=== PATIENT | female | born 1945 | race Two or more races ===

== ENCOUNTER → 2017-08-22 | Emergency (ER) | payer OTHER ==
[~2017-08-22] VITALS: Ht 152.4 cm; Wt 76.2 kg
[~2017-08-22] MED LIST: ASPI81TA31 PO; ASPIRIN 325 MG TABLET ONE; ASPIRIN 325 MG TABLET PO ONE; ATOR20TA PO; FERR160T11 PO; GABA-534 PO; HYDR12.5 PO; IV D5 1/2 NS 1000 ML 1,000 ML IV ONE; LURA20TA PO; METF500T6 PO; OMEP40CA37 PO; PIOG15TA8 PO; TRAM50TA2 PO
--- NOTE | 2017-08-22 13:55 | NUR ---
PT IS IN ROOM #1A. DR DAVIS EVALUATED THE PT.
[2017-08-22 14:04] LABS: BASOPHILS % (AUTO) 0.6 % (0.0-2.0); EOSINOPHILS # (AUTO) 0.1 K/uL (0.0-0.7); HEMATOCRIT 31.6 % (31.2-41.9); HEMOGLOBIN 10.8 g/dL (10.9-14.3); LYMPHOCYTES # (AUTO) 2.1 K/uL (20.0-40.0); LYMPHOCYTES % (AUTO) 33.8 % (20.5-51.5); MEAN CORPUSCULAR HEMOGLOBIN 30.2 uug (24.7-32.8); MEAN CORPUSCULAR HGB CONC 34 g/dL (32.3-35.6); MEAN CORPUSCULAR VOLUME 88.3 fL (75.5-95.3); MONOCYTES # (AUTO) 0.4 K/uL (2.0-10.0); MONOCYTES % (AUTO) 6.8 % (0.0-11.0); NEUTROPHILS # (AUTO) 3.6 K/uL (1.8-8.9); NEUTROPHILS % (AUTO) 57.8 % (38.5-71.5); PLATELET COUNT (AUTO) 217 K/uL (179-408); RED BLOOD CELL COUNT(AUTO) 3.58 MIL/uL (3.63-4.92); WHITE BLOOD COUNT (AUTO) 6.3 K/uL (3.8-11.8)
[2017-08-22 14:10] LABS: CARBON DIOXIDE 23 mmol/L (21-32); CHLORIDE 100 mmol/L (98-107); CREATININE 1.5 mg/dL (0.6-1.3); GLUCOSE 93 mg/dL (74-106); POTASSIUM 4.8 mmol/L (3.5-5.1); UREA NITROGEN, BLOOD 25 mg/dL (7-18)
[2017-08-22 14:16] LABS: ALANINE AMINOTRANSFERASE 13 U/L (14-59); ALKALINE PHOSPHATASE 64 U/L (50-136); ASPARTATE AMINOTRANSFERASE 9 U/L (15-37); BILIRUBIN,DIRECT 0.1 mg/dL (0.0-0.2); BILIRUBIN,TOTAL 0.3 mg/dL (0.2-1.0); TOTAL PROTEIN, SERUM 7.3 g/dL (6.4-8.2)
--- NOTE | 2017-08-22 14:43 | NUR ---
[facility] TRACK MOVING MACHINE OPERATOR JIMMY CALLED [facility] PT's TRANSFER INFORMATION.
--- NOTE | 2017-08-22 16:59 | NUR ---
DR DAVIS TALKED TO DR ESCOBAR FROM [facility]. PT IS GOING TO BE TRANSFERED TO [facility] VIA [facility]. DR ESCOBAR IS ADMITING MD FOR THE PT.
--- NOTE | 2017-08-22 18:33 | NUR ---
YODIT FROM [facility] CALLED WITH TRANSFER INFORMATION. PT IS GOING TO ICU ROOM #[id number]. DR ESCOBAR IS ADMITING MD. [facility] IS 1HOUR 30 MINUTES. REPORT WAS GIVEN TO DELIVERY TABLE FEEDER ANNA FROM [facility].
--- NOTE | 2017-08-22 18:56 | NUR ---
REPORT GIVEN TO INGOT PASSER RN.
--- NOTE | 2017-08-22 19:35 | NUR ---
PT ASSESSED AND WORK UP REVIEWED UPON COTTAGE PARENT. PT'S DAUGHTER AT BEDSIDE WHO ASSISTED WITH FARSI INTERPRETATION. ACCORDING TO DAUGHTER, PT'S MENTATION IS NORMAL. PT IS CALM AND COOPERATIVE. PT IS ABLE TO MAKE NEEDS KNOWN. PT'S BREATH SOUNDS ARE CLEAR BILATERALLY. MD MADE AWARE OF PT'S CURRENT VITAL SIGNS.
--- NOTE | 2017-08-22 20:38 | NUR ---
CALLED [facility] [place] [facility], SPOKE WITH [facility] FOR AMBULANCE ETA. CURRENTLY AMBULANCE IS 40 MINS LATE. ASSOCIATE SOFTWARE APPLICATION ENGINEER, MINERVA, MADE AWARE.
--- NOTE | 2017-08-22 21:10 | NUR ---
PT IN ROUTE TO [facility] IN THE CARE OF RETAIL SPECIALIST WILL W/ NATALIYA RA 53. REPORT GIVEN TO WILL.
== END | disposition home or self-care (01) ==
LOC: ER 13:34
DX: I44.1 Atrioventricular block, second degree (principal); I10 Essential (primary) hypertension; E78.5 Hyperlipidemia, unspecified; K21.9 Gastro-esophageal reflux disease without esophagitis; E11.9 Type 2 diabetes mellitus without complications; Z79.82 Long term (current) use of aspirin; Z79.84 Long term (current) use of oral hypoglycemic drugs; Z79.899 Other long term (current) drug therapy
CPT/HCPCS: 36415; 70030-TC; 71045; 85025; 85730; 93005; A4663; J3490

== ENCOUNTER 2018-01-26 09:54 | Emergency (ER) | payer MEDICARE, OTHER ==
[~2018-01-26] VITALS: Ht 152.4 cm; Wt 74.4 kg
[~2018-01-26 09:54] MED LIST changes: +ACET325T53 PO; +ASPI-610 PO; -ASPI81TA31 PO; -ASPIRIN 325 MG TABLET ONE; -ASPIRIN 325 MG TABLET PO ONE; +Blood Sugar Diagnostic VI; +CITA20TA16 PO; +CYAN10009 PO; +DEXT50DI8 IV; -FERR160T11 PO; +INSU100V28 SQ; -IV D5 1/2 NS 1000 ML 1,000 ML IV ONE; -LURA20TA PO; +METF-442 PO; -METF500T6 PO; +Morphine Sulfate Inj IV; +NITR0.4T48 SL; -OMEP40CA37 PO; +ONDA4VIA23 IV; +PANT40TA2 PO; -TRAM50TA2 PO
[2018-01-26] MEDS ORDERED: IV NORMAL SALINE 250 ML IV ONE (10:26)
[2018-01-26] MEDS ORDERED: IOHEXOL 300MG/ML 100 ML INFUS..BTL ONE (10:26)
[2018-01-26] MEDS ORDERED: SWABABLE VALVE TRANSFER SET EA MC ONE (10:26)
[2018-01-26] MEDS ORDERED: PANTOPRAZOLE SODIUM 40 MG VIAL IV ONE (10:30)
[2018-01-26] MEDS ORDERED: MORPHINE SULFATE 2 MG/1 ML DISP.SYRIN IV ONE (10:30)
[2018-01-26] MEDS ORDERED: IV NORMAL SALINE 1000 ML BAG IV ONE (10:30)
[2018-01-26] MEDS ORDERED: ONDANSETRON 4 MG/2 ML VIAL IV ONE (10:30)
[2018-01-26 10:45] LABS: BASOPHILS # (AUTO) 0.1 K/uL (0.0-8.0); BASOPHILS % (AUTO) 1.1 % (0.0-2.0); EOSINOPHILS # (AUTO) 0.1 K/uL (0.0-0.7); EOSINOPHILS % (AUTO) 1.4 % (0.0-7.0); HEMATOCRIT 28.1 % (31.2-41.9); HEMOGLOBIN 9.2 g/dL (10.9-14.3); LYMPHOCYTES # (AUTO) 1.2 K/uL (20.0-40.0); LYMPHOCYTES % (AUTO) 23.9 % (20.5-51.5); MEAN CORPUSCULAR HEMOGLOBIN 27.3 uug (24.7-32.8); MEAN CORPUSCULAR HGB CONC 33 g/dL (32.3-35.6); MEAN CORPUSCULAR VOLUME 83.4 fL (75.5-95.3); MONOCYTES # (AUTO) 0.4 K/uL (2.0-10.0); MONOCYTES % (AUTO) 7.1 % (0.0-11.0); NEUTROPHILS # (AUTO) 3.4 K/uL (1.8-8.9); NEUTROPHILS % (AUTO) 66.5 % (38.5-71.5); PLATELET COUNT (AUTO) 246 K/uL (179-408); RED BLOOD CELL COUNT(AUTO) 3.37 MIL/uL (3.63-4.92); WHITE BLOOD COUNT (AUTO) 5.1 K/uL (3.8-11.8)
[2018-01-26 10:46] LABS: *BILIRUBIN,URIN NEGATIVE (NEGATIVE); *BLOOD, URINE Trace-intact (NEGATIVE); *CLARITY,URINE CLEAR (CLEAR); *COLOR,URINE YELLOW (YELLOW); *KETONES,URINE NEGATIVE (NEGATIVE); *PROTEIN,URINE NEGATIVE (NEGATIVE); *UROBILINOGEN,URINE 0.2 E.U./dl (NORMAL); LEUKOCYTE ESTERASE ,URINE 1+ (NEGATIVE); NITRITE, URINE NEGATIVE (NEGATIVE); PH,URINE 5.5 (5.0-8.0); UGLUCOSE NEGATIVE (NEGATIVE)
[2018-01-26] MEDS ORDERED: ONDANSETRON 4 MG/2 ML VIAL ONE (10:48)
[2018-01-26] MEDS ORDERED: MORPHINE SULFATE 2 MG/1 ML DISP.SYRIN ONE (10:49)
[2018-01-26] MEDS ORDERED: PANTOPRAZOLE SODIUM 40 MG VIAL ONE (10:49)
[2018-01-26 10:55] LABS: CARBON DIOXIDE 24 mmol/L (21-32); CHLORIDE 100 mmol/L (98-107); CREATININE 1.3 mg/dL (0.6-1.3); GLUCOSE 139 mg/dL (74-106); POTASSIUM 4.3 mmol/L (3.5-5.1); UREA NITROGEN, BLOOD 32 mg/dL (7-18)
[2018-01-26 11:01] LABS: ALANINE AMINOTRANSFERASE 15 U/L (14-59); ALKALINE PHOSPHATASE 51 U/L (50-136); ASPARTATE AMINOTRANSFERASE 13 U/L (15-37); BILIRUBIN,DIRECT 0.1 mg/dL (0.0-0.2); BILIRUBIN,TOTAL 0.2 mg/dL (0.2-1.0); LIPASE 112 U/L (73-393); TOTAL PROTEIN, SERUM 7.4 g/dL (6.4-8.2)
[2018-01-26 11:01] LABS: BACTERIA,URINE NONE SEEN /HPF (NONE SEEN); MUCUS,URINE FEW /LPF (0-FEW); SQUAMOUS EPITHELIAL CELL,UR MODERATE /HPF (NONE SEEN)
[2018-01-26] MEDS ORDERED: ERGO2000 PO (11:48)
[2018-01-26] MEDS ORDERED: LANS30CA56 PO (11:48)
[2018-01-26] MEDS ORDERED: LACT10SO PO (11:48)
[2018-01-26] MEDS ORDERED: OMEP40CA37 PO (11:50)
[2018-01-26] MEDS ORDERED: ACET-1262 PO (11:50)
--- NOTE | 2018-01-26 12:30 | NUR ---
pt daughter in law calling regarding the decision of admitting the ot here.
--- NOTE | 2018-01-26 12:48 | NUR ---
pt resting. pt says that the pain has come down to 2/10 at this point. pt deneis any nausea.
--- NOTE | 2018-01-26 14:32 | NUR ---
pt daughter in law still trying to make the decision with pt and pt sons regarding pt care.
--- NOTE | 2018-01-26 14:34 | NUR ---
pt says she is hungry asking for food. hospital lunch tray provided per md gee
--- NOTE | 2018-01-26 15:00 | NUR ---
pt son at bedside talking to pt ans pt s daughter in law.
--- NOTE | 2018-01-26 15:25 | NUR ---
Patient does not wish to proceed with medical care recommended by Dr. Shanae blakely ). Patient given and family members information related to possible complications, up to and including , which could occur as a result of leaving the hospital at this time. Patient verbalizes understanding of risks involved due to leaving against medical advice. Patient has signed AMA form.pt says that she is happy to go home and feels better. a copy of all the studies including the summary report obtained from [facility] was given to pt son and daughter in law. pt daughter in law and son will follow up with pmd and remote control mirror installer dr. myranda treviño.
[2018-01-26 15:33] VITALS: BP 139/71
== END 2018-01-26 15:34 | disposition home or self-care (01) ==
LOC: ER 09:54
DX: I21.4 Non-ST elevation (NSTEMI) myocardial infarction (principal); R10.84 Generalized abdominal pain; D64.9 Anemia, unspecified; E78.5 Hyperlipidemia, unspecified; I10 Essential (primary) hypertension; K21.9 Gastro-esophageal reflux disease without esophagitis; E11.9 Type 2 diabetes mellitus without complications; Z95.0 Presence of cardiac pacemaker; Z79.82 Long term (current) use of aspirin; Z79.899 Other long term (current) drug therapy; Z79.84 Long term (current) use of oral hypoglycemic drugs; Z79.4 Long term (current) use of insulin
CPT/HCPCS: 36415; 71045; 74177; 80048; 80076; 81001; 83690; 84484; 85025; 85730; 93005; 96374; 96375; 99284; C9113; J2270; J2405; Q9967; 70030-TC; A4663; J7030; J7050

== ENCOUNTER 2018-02-18 23:29 | Inpatient (IN) | payer OTHER, MEDICARE ==
[~2018-02-18] VITALS: Ht 152.4 cm; Wt 62.6 kg
[~2018-02-18 23:29] MED LIST changes: +ACET-1262 PO; -ACET325T53 PO; -ASPI-610 PO; -DEXT50DI8 IV; +ERGO2000 PO; -INSU100V28 SQ; +LACT10SO PO; +LANS30CA56 PO; -Morphine Sulfate Inj IV; -NITR0.4T48 SL; +OMEP40CA37 PO; -ONDA4VIA23 IV
[2018-02-19] MEDS ORDERED: PANTOPRAZOLE SODIUM 40 MG VIAL IV ONE
[2018-02-19] MEDS ORDERED: ONDANSETRON 4 MG/2 ML VIAL ONE ×2 (00:02→01:21)
[2018-02-19] MEDS ORDERED: PANTOPRAZOLE SODIUM 40 MG VIAL ONE (00:02)
[2018-02-19 00:10] LABS: BASOPHILS # (AUTO) 0.1 K/uL (0.0-8.0); BASOPHILS % (AUTO) 0.6 % (0.0-2.0); HEMATOCRIT 34.7 % (31.2-41.9); HEMOGLOBIN 11.1 g/dL (10.9-14.3); LYMPHOCYTES # (AUTO) 0.8 K/uL (20.0-40.0); LYMPHOCYTES % (AUTO) 6.8 % (20.5-51.5); MEAN CORPUSCULAR HGB CONC 32 g/dL (32.3-35.6); MEAN CORPUSCULAR VOLUME 84.7 fL (75.5-95.3); MONOCYTES # (AUTO) 0.2 K/uL (2.0-10.0); NEUTROPHILS # (AUTO) 10.6 K/uL (1.8-8.9); NEUTROPHILS % (AUTO) 90.6 % (38.5-71.5); PLATELET COUNT (AUTO) 297 K/uL (179-408); RED BLOOD CELL COUNT(AUTO) 4.09 MIL/uL (3.63-4.92); WHITE BLOOD COUNT (AUTO) 11.7 K/uL (3.8-11.8)
[2018-02-19] MEDS ORDERED: MORPHINE SULFATE 2 MG/1 ML DISP.SYRIN IV ONE (00:30)
[2018-02-19] MEDS ORDERED: MORPHINE SULFATE 4 MG/1 ML DISP.SYRIN ONE ×2 (00:30→01:50)
[2018-02-19 00:46] LABS: CHLORIDE 91 mmol/L (98-107); POTASSIUM 5.7 mmol/L (3.5-5.1); UREA NITROGEN, BLOOD 73 mg/dL (7-18)
[2018-02-19 00:51] LABS: ALANINE AMINOTRANSFERASE 15 U/L (14-59); ALKALINE PHOSPHATASE 66 U/L (50-136); ASPARTATE AMINOTRANSFERASE 17 U/L (15-37); BILIRUBIN,DIRECT 0.1 mg/dL (0.0-0.2); BILIRUBIN,TOTAL 0.3 mg/dL (0.2-1.0); CARBON DIOXIDE 8 mmol/L (21-32); GLUCOSE 47 mg/dL (74-106); LIPASE 388 U/L (73-393); TOTAL PROTEIN, SERUM 7.8 g/dL (6.4-8.2)
[2018-02-19] MEDS ORDERED: DEXTROSE 50% 50 ML DISP.SYRIN IV ONE (01:00)
[2018-02-19] MEDS ORDERED: DEXTROSE 50% 50 ML DISP.SYRIN ONE (01:05)
[2018-02-19] MEDS ORDERED: NITROGLYCERIN 0.4 MG/TAB BOTTLE SL ONE (01:25)
[2018-02-19] MEDS ORDERED: NITROGLYCERIN 4.9 GM SPRAY TL ONE (01:27)
[2018-02-19] MEDS ORDERED: NITROGLYCERIN 4.9 GM SPRAY TL PRN (01:30)
[2018-02-19] MEDS ORDERED: ONDANSETRON 4 MG/2 ML VIAL IV ONE ×2 (01:30)
[2018-02-19] MEDS ORDERED: MORPHINE SULFATE 4 MG/1 ML DISP.SYRIN IV ONE (01:45)
--- NOTE | 2018-02-19 03:07 | NUR ---
PANEL CALL PLACED TO [employer].
--- NOTE | 2018-02-19 03:09 | NUR ---
DISHA MONTERO ON PHONE W/ DR SALAS FOR PANEL CALL.
--- NOTE | 2018-02-19 03:12 | NUR ---
Pt. admitted to TELE-TD , under care of Dr. SALAS. DX: RENAL FAILURE Belongs List completed
[2018-02-19] MEDS ORDERED: PIPERACILLIN SODIUM/TAZOBACTAM 3.375 G in IV DEXTROSE 5% 50 ML IV ONE (03:15)
[2018-02-19] MEDS ORDERED: IV NORMAL SALINE 1000 ML BAG IV ONE ×2 (03:15)
--- NOTE | 2018-02-19 03:15 | NUR ---
REPORT GIVEN TO DALIA QUEEN ON TELE-TD.
[2018-02-19] MEDS ORDERED: PIPERACILLIN/TAZOBACTAM/D5W 50 ML IV ONE (03:18)
--- NOTE | 2018-02-19 03:37 | NUR ---
Patient is not a " code sepsis" per ER MD.
[2018-02-19 03:50] LABS: *BILIRUBIN,URIN NEGATIVE (NEGATIVE); *BLOOD, URINE 1+ (NEGATIVE); *CLARITY,URINE CLEAR (CLEAR); *COLOR,URINE LIGHT YELLOW (YELLOW); *KETONES,URINE 1+ (NEGATIVE); *UROBILINOGEN,URINE 0.2 E.U./dl (NORMAL); LEUKOCYTE ESTERASE ,URINE TRACE (NEGATIVE); NITRITE, URINE NEGATIVE (NEGATIVE); UGLUCOSE TRACE (NEGATIVE)
[2018-02-19] MEDS ORDERED: IV NS 1000 ML 1,000 ML IV PRN (03:51)
[2018-02-19 04:00] VITALS: BP 156/69
[2018-02-19] MEDS ORDERED: Z GUARD REMEDY PASTE 57 GM TUBE TOP PRN (04:00)
[2018-02-19] MEDS ORDERED: SODIUM BICARBONATE 8.4% 50 MEQ/50 ML DISP.SYRIN IV ONE (04:00)
[2018-02-19] MEDS ORDERED: ZOLPIDEM 5 MG TABLET PO PRN (04:00)
[2018-02-19 04:27] LABS: BACTERIA,URINE FEW /HPF (NONE SEEN); SQUAMOUS EPITHELIAL CELL,UR FEW /HPF (NONE SEEN); WBC,URINE 0-3 /HPF (0-3)
[2018-02-19 05:05] LABS: ABG BASE EXCESS -21.6 mmol/L; ABG HCO3 6.7 mmol/L; ABG PCO2 23.1 mmHg (35.0-45.0); ABG PH 7.082 (7.350-7.450); ABG PO2 109.6 mmHg (75.0-100.0); ABG SITE LEFT RADIAL; ABG TOTAL HEMOGLOBIN 11.3 G/dL (12.0-16.0); COHb 1.6 % (0.5-1.5); MetHb 0.1 % (0.0-1.5); O2Hb 95.9 % (94.0-97.0); VENT MODE Room Air
[2018-02-19 05:35] LABS: BASOPHILS % (AUTO) 0.2 % (0.0-2.0); HEMATOCRIT 34.1 % (31.2-41.9); HEMOGLOBIN 10.9 g/dL (10.9-14.3); LYMPHOCYTES # (AUTO) 0.3 K/uL (20.0-40.0); LYMPHOCYTES % (AUTO) 2.5 % (20.5-51.5); MEAN CORPUSCULAR HEMOGLOBIN 27.7 uug (24.7-32.8); MEAN CORPUSCULAR HGB CONC 32 g/dL (32.3-35.6); MEAN CORPUSCULAR VOLUME 86.5 fL (75.5-95.3); MONOCYTES # (AUTO) 0.3 K/uL (2.0-10.0); MONOCYTES % (AUTO) 2.8 % (0.0-11.0); NEUTROPHILS # (AUTO) 10.3 K/uL (1.8-8.9); NEUTROPHILS % (AUTO) 94.5 % (38.5-71.5); PLATELET COUNT (AUTO) 285 K/uL (179-408); RED BLOOD CELL COUNT(AUTO) 3.95 MIL/uL (3.63-4.92); WHITE BLOOD COUNT (AUTO) 10.9 K/uL (3.8-11.8)
--- NOTE | 2018-02-19 07:00 | NUR ---
Admitted to room 209 ESTRELLA status; pt awake alert and oriented Farsi speaking; [facility] interpreted for RN; finished IVF from ER and finished Zosyn as well; VSS; no N/V/D noted; AM ABG showed pH of 7.08 and HCO3 of 6.7, referred to DR Kapoor with new order; and awaiting new IVF from pharmacy as ordered; will endorse to next RN; Addendum: 02/19/18 at 0706 by DANI BEYER RN Patient arrived with NGT from and connected to [facility]
--- NOTE | 2018-02-19 07:30 | NUR ---
RECIEVED PT LYING IN BED VERY WEAK AND LOOKING NAOMI TIRED. COLOR IS PALE. GENERALLY WEAK. SPEAKS ONLY FARSI. SON AT THE BEDSIDE. HOB 35DEGREES. VERY DROWSY BUT OPENS EYES TO CALL. NO APPARENT RESPIRATORY DISTRESS NOTEDE.
--- NOTE | 2018-02-19 08:00 | NUR ---
IVF IS A BICARB INFUSION AT 100 ML/HR INFUSING WELL ON HER RT AC. SITE IS INTACT.
--- NOTE | 2018-02-19 08:00 | NUR ---
SEEN AND EXAMINED BY DR GARNER AND DISCUSSED WITH SON ABOUT PIOSSIBLE HD TODAY. PT WOULD NEED DIALYSIS ACCESS INSERTION.
--- NOTE | 2018-02-19 09:00 | NUR ---
PT IS SLEEPING MOSTLY. NPO. HAS NGT ON HER LT NOSTRIL CONNECTED TO LOW SUCTION BUT VERY MINIMAL DRAIN. NO C/O N/V. ABDOMEN IS SOFT, HPOACTIVE BS NOTED. NO BM. PT HAS FC DRAINING GOOD AMOUNT OF CLEAR URINE. SKIN IS INTACT.
[2018-02-19] MEDS: SODIUM BICARBONATE 8.4% 150 MEQ in IV D5W 1000ML 1,000 ML IV PRN ×2 (09:19→22:25)
[2018-02-19] MEDS: PANTOPRAZOLE SODIUM 40 MG VIAL IV SCH (09:20)
[2018-02-19 10:10] LABS: ALANINE AMINOTRANSFERASE 21 U/L (14-59); ALKALINE PHOSPHATASE 65 U/L (50-136); ASPARTATE AMINOTRANSFERASE 24 U/L (15-37); BILIRUBIN,TOTAL 0.2 mg/dL (0.2-1.0); CHLORIDE 92 mmol/L (98-107); CHOLESTEROL 146 mg/dL (<200); GLUCOSE 146 mg/dL (74-106); HDL CHOLESTEROL 43 mg/dL (40-60); MAGNESIUM 2.1 mg/dL (1.8-2.4); TOTAL PROTEIN, SERUM 7.3 g/dL (6.4-8.2); TRIGLYCERIDES 156 MG/DL (30-150); UREA NITROGEN, BLOOD 70 mg/dL (7-18)
[2018-02-19 10:26] LABS: POTASSIUM 5.9 mmol/L (3.5-5.1)
[2018-02-19 10:28] LABS: CARBON DIOXIDE 9 mmol/L (21-32)
[2018-02-19 10:29] LABS: CREATININE 8.3 mg/dL (0.6-1.3); PHOSPHOROUS 8.6 mg/dL (2.5-4.9)
[2018-02-19 11:11] VITALS: BP 124/54
--- NOTE | 2018-02-19 14:00 | NUR ---
DR VICTORIA IN AND INSERTED THE DIALYSIS CATHETER ON THE RIGHT GROIN. CONSENT SIGNED BY THE SON. PT TOLERATED WELL. INFORMED HD RN OF THE HD ACCESS AVAILABILITY.
--- NOTE | 2018-02-19 16:00 | NUR ---
HD STARTED BY HD RN AT THE BEDSIDE ORDERED. PT TOLERATED WELL. HR IS SR WITH OCC PAC'S. NO APPARENT DISTRESS NOTED. FAMILY AT THE BEDSIDE. PT SEEN BY SEWING MACHINE MAINTENANCE MECHANIC, WITH NEW ORDERS.
--- NOTE | 2018-02-19 18:00 | NUR ---
HD DONE, NO FLUID PULLED OUT. PT SI RESTING COMFORTABLY.
--- NOTE | 2018-02-19 19:30 | NUR ---
NSG: PT RECEIVED ALERT BUT DROWSY. NO ACUTE DISTRESS NOTED. ON RA, SATURATING AT 94%. TELE, NSR. NPO. WITH NGT TO LOW CONT SUCTION. MIDLINE ON LEFT UPPER ARM, RECEIVING IV WITH HCO3 AT 100ML/HR. F/C DRAINING CLOUDY YELLOW URINE VIA GRAVITY. DVT PUMPS IN PLACE. BED ALARM ON. CALL LIGHT WITHIN REACH. CONT TO MONITOR.
[2018-02-19 20:38] VITALS: BP 129/42
[2018-02-20] VITALS (7 sets, daily range): BP systolic 98–171; BP diastolic 40–53
--- NOTE | 2018-02-20 | NUR ---
NSG: PT AWAKE, REQUESTING FOOD. STRICT NPO, WITH NGT TO LOW CONT SUCTION. EXPLAINED TO PATIENT.
[2018-02-20 04:11] LABS: BASOPHILS % (AUTO) 0.4 % (0.0-2.0); HEMATOCRIT 28.6 % (31.2-41.9); HEMOGLOBIN 9.7 g/dL (10.9-14.3); LYMPHOCYTES % (AUTO) 12.3 % (20.5-51.5); MEAN CORPUSCULAR HEMOGLOBIN 27.2 uug (24.7-32.8); MEAN CORPUSCULAR HGB CONC 34 g/dL (32.3-35.6); MEAN CORPUSCULAR VOLUME 80.1 fL (75.5-95.3); MONOCYTES # (AUTO) 0.6 K/uL (2.0-10.0); MONOCYTES % (AUTO) 8.1 % (0.0-11.0); NEUTROPHILS # (AUTO) 6.2 K/uL (1.8-8.9); NEUTROPHILS % (AUTO) 79.2 % (38.5-71.5); PLATELET COUNT (AUTO) 239 K/uL (179-408); RED BLOOD CELL COUNT(AUTO) 3.57 MIL/uL (3.63-4.92); WHITE BLOOD COUNT (AUTO) 7.8 K/uL (3.8-11.8)
[2018-02-20 04:41] LABS: ALANINE AMINOTRANSFERASE 18 U/L (14-59); ALKALINE PHOSPHATASE 53 U/L (50-136); ASPARTATE AMINOTRANSFERASE 17 U/L (15-37); BILIRUBIN,TOTAL 0.3 mg/dL (0.2-1.0); CARBON DIOXIDE 34 mmol/L (21-32); CHLORIDE 93 mmol/L (98-107); CHOLESTEROL 125 mg/dL (<200); CREATININE 4.4 mg/dL (0.6-1.3); GLUCOSE 251 mg/dL (74-106); HDL CHOLESTEROL 41 mg/dL (40-60); MAGNESIUM 1.7 mg/dL (1.8-2.4); PHOSPHOROUS 5.2 mg/dL (2.5-4.9); POTASSIUM 3.2 mmol/L (3.5-5.1); TOTAL PROTEIN, SERUM 6.5 g/dL (6.4-8.2); TRIGLYCERIDES 159 MG/DL (30-150); UREA NITROGEN, BLOOD 41 mg/dL (7-18)
--- NOTE | 2018-02-20 05:29 | NUR ---
NSG: SPOKE WITH DR. ALEJANDRO REGARDING CRITICAL TROPONIN LEVEL OF 3.365 AND POTASSIUM LEVEL OF 3.2. V/S STABLE. DENIES CHEST PAIN. NO NEW ORDER RECEIVED. CONT TO MONITOR.
--- NOTE | 2018-02-20 05:44 | NUR ---
NSG: NO ACUTE DISTRESS NOTED. REPOSITIONED. V/S STABLE. ALL NEEDS ATTENDED. CONT TO MONITOR.
--- NOTE | 2018-02-20 05:45 | NUR ---
NSG: OBTAINED 600ML OF DARK BROWN DRAINAGE.
--- NOTE | 2018-02-20 08:00 | NUR ---
Pt is awake and asleep intermittently. Right Femoral HD access no bleeding noted. Midline on left brachial intact. NGT on Continous Low Suction draining green/dark secretions. Call light is within within reach. Plan of care for skin management, fall precaution, pain management implemented.
[2018-02-20] MEDS: PANTOPRAZOLE SODIUM 40 MG VIAL IV SCH ×2 (08:23→17:15)
[2018-02-20] MEDS ORDERED: ASPIRIN EC 81 MG TABLET.DR PO SCH (09:00)
[2018-02-20] MEDS: SODIUM BICARBONATE 8.4% 150 MEQ in IV D5W 1000ML 1,000 ML IV PRN (14:21)
[2018-02-20] MEDS: POTASSIUM CHLORIDE 50 ML IV SCH ×2 (14:27→15:26)
--- NOTE | 2018-02-20 18:47 | NUR ---
GI saw pt. Ordered to D/C NGT and start pt on clear liquid diet. Sharla ordered to obtain records from DR KIRSTEN BARBA of last weeks EGD/colonoscopy result Daughter in law to get records and result of EGD/colonoscopy herself. Pt is in no acute distress. Only 100 cc output from NGT. Plan of care effective.
[2018-02-20 19:56] LABS: BASOPHILS # (AUTO) 0.1 K/uL (0.0-8.0); BASOPHILS % (AUTO) 0.5 % (0.0-2.0); HEMATOCRIT 29.7 % (31.2-41.9); LYMPHOCYTES # (AUTO) 1.4 K/uL (20.0-40.0); LYMPHOCYTES % (AUTO) 14.1 % (20.5-51.5); MEAN CORPUSCULAR HEMOGLOBIN 27.4 uug (24.7-32.8); MEAN CORPUSCULAR HGB CONC 34 g/dL (32.3-35.6); MEAN CORPUSCULAR VOLUME 81.3 fL (75.5-95.3); MONOCYTES # (AUTO) 0.8 K/uL (2.0-10.0); MONOCYTES % (AUTO) 8.5 % (0.0-11.0); NEUTROPHILS # (AUTO) 7.5 K/uL (1.8-8.9); NEUTROPHILS % (AUTO) 76.9 % (38.5-71.5); PLATELET COUNT (AUTO) 212 K/uL (179-408); RED BLOOD CELL COUNT(AUTO) 3.65 MIL/uL (3.63-4.92); WHITE BLOOD COUNT (AUTO) 9.7 K/uL (3.8-11.8)
[2018-02-21] VITALS: BP 134/53
[2018-02-21] MEDS: SODIUM BICARBONATE 8.4% 150 MEQ in IV D5W 1000ML 1,000 ML IV PRN ×2 (02:31→13:19)
[2018-02-21 04:00] VITALS: BP 172/56
--- NOTE | 2018-02-21 04:56 | NUR ---
DR. CENTENO INFORMED OF SBP 172 ORDERS OBTAINED.
[2018-02-21] MEDS: CLONIDINE HCL 0.1 MG TABLET PO PRN (05:10)
[2018-02-21] MEDS: ONDANSETRON 4 MG/2 ML VIAL IV PRN (05:17)
[2018-02-21 06:15] VITALS: BP 154/52
--- NOTE | 2018-02-21 06:30 | NUR ---
B/P CAME DOWN TO 154/52 AFTER CLONIDINE GIVEN.
[2018-02-21 06:49] LABS: BASOPHILS % (AUTO) 0.2 % (0.0-2.0); EOSINOPHILS % (AUTO) 0.1 % (0.0-7.0); HEMATOCRIT 28.5 % (31.2-41.9); HEMOGLOBIN 9.5 g/dL (10.9-14.3); LYMPHOCYTES # (AUTO) 1.1 K/uL (20.0-40.0); LYMPHOCYTES % (AUTO) 14.9 % (20.5-51.5); MEAN CORPUSCULAR HEMOGLOBIN 27.4 uug (24.7-32.8); MEAN CORPUSCULAR HGB CONC 33 g/dL (32.3-35.6); MEAN CORPUSCULAR VOLUME 82.5 fL (75.5-95.3); MONOCYTES # (AUTO) 0.6 K/uL (2.0-10.0); MONOCYTES % (AUTO) 8.2 % (0.0-11.0); NEUTROPHILS # (AUTO) 5.5 K/uL (1.8-8.9); NEUTROPHILS % (AUTO) 76.6 % (38.5-71.5); PLATELET COUNT (AUTO) 189 K/uL (179-408); RED BLOOD CELL COUNT(AUTO) 3.46 MIL/uL (3.63-4.92); WHITE BLOOD COUNT (AUTO) 7.2 K/uL (3.8-11.8)
[2018-02-21 06:58] LABS: ALANINE AMINOTRANSFERASE 12 U/L (14-59); ALKALINE PHOSPHATASE 55 U/L (50-136); ASPARTATE AMINOTRANSFERASE 16 U/L (15-37); BILIRUBIN,TOTAL 0.3 mg/dL (0.2-1.0); CHLORIDE 94 mmol/L (98-107); CREATININE 2.7 mg/dL (0.6-1.3); GLUCOSE 236 mg/dL (74-106); MAGNESIUM 1.6 mg/dL (1.8-2.4); PHOSPHOROUS 2.7 mg/dL (2.5-4.9); TOTAL PROTEIN, SERUM 6.8 g/dL (6.4-8.2); UREA NITROGEN, BLOOD 26 mg/dL (7-18)
[2018-02-21 07:03] LABS: POTASSIUM 2.4 mmol/L (3.5-5.1)
[2018-02-21 07:06] LABS: CARBON DIOXIDE 42 mmol/L (21-32)
--- NOTE | 2018-02-21 07:24 | NUR ---
Report received from cage shift manager Catracho John. Pt. AAOx1-2. farsy speaking, resting comfortably in bed. As reported stable sbp, post clonidide adm. at 0510. Labs reported to Catracho Cole who notified
--- NOTE | 2018-02-21 08:00 | NUR ---
Patient seen and examine by attending physician Dr. Parnell.
[2018-02-21 08:06] VITALS: BP 131/52
[2018-02-21] MEDS: PANTOPRAZOLE SODIUM 40 MG VIAL IV SCH (08:08)
[2018-02-21] MEDS ORDERED: POTASSIUM CHLORIDE 20 MEQ TAB.PRT.SR PO ONE (08:15)
--- NOTE | 2018-02-21 09:45 | NUR ---
Patient visited by her who was updated on pt's current condition, sitter at bedside.
[2018-02-21] MEDS ORDERED: NITROGLYCERIN 0.4 MG/TAB BOTTLE SL PRN (11:00)
[2018-02-21] MEDS: POTASSIUM CHLORIDE 50 ML IV SCH ×4 (11:49→13:45)
[2018-02-21 11:53] VITALS: BP 117/45
[2018-02-21] MEDS: MAGNESIUM SULFATE/D5W 100 ML IV SCH ×2 (13:46→14:40)
[2018-02-21] MEDS: PANTOPRAZOLE SODIUM 40 MG TABLET.DR PO SCH (17:30)
--- NOTE | 2018-02-21 18:43 | NUR ---
Patient left in bed resting no c/of pain, tolerating diet well. No reportable cardiac issues, pt. on SR though out the shift. SBP stable see VS spread sheet./
[2018-02-21 19:00] VITALS: BP 128/44
[2018-02-22] VITALS: BP 150/47
[2018-02-22] MEDS: SODIUM BICARBONATE 8.4% 150 MEQ in IV D5W 1000ML 1,000 ML IV PRN ×2 (01:30→21:47)
[2018-02-22] MEDS: ONDANSETRON 4 MG/2 ML VIAL IV PRN (02:50)
[2018-02-22 04:00] VITALS: BP 174/63
[2018-02-22] MEDS: CLONIDINE HCL 0.1 MG TABLET PO PRN (04:38)
[2018-02-22] MEDS: PANTOPRAZOLE SODIUM 40 MG TABLET.DR PO SCH ×2 (05:47→16:47)
--- NOTE | 2018-02-22 06:05 | NUR ---
END OF SHIFT REPORT Patient rested well in between care; no acute distress; VSS; repositioned q2h; tolerated clear liquids; needs attended; SR on tele; safety maintained; c/o nausea x1 zofran administered; ; pt also requested for sleep meds, ambien given as ordered; continue to monitor; continue plan of care. Addendum: 02/22/18 at 0618 by DANI BEYER RN BP elevated at 170s, clonidine given as orered; last BP at 148/65
[2018-02-22 06:54] LABS: BASOPHILS % (AUTO) 0.3 % (0.0-2.0); EOSINOPHILS % (AUTO) 0.6 % (0.0-7.0); HEMATOCRIT 27.9 % (31.2-41.9); HEMOGLOBIN 9.3 g/dL (10.9-14.3); LYMPHOCYTES # (AUTO) 1.1 K/uL (20.0-40.0); LYMPHOCYTES % (AUTO) 16.2 % (20.5-51.5); MEAN CORPUSCULAR HEMOGLOBIN 27.8 uug (24.7-32.8); MEAN CORPUSCULAR HGB CONC 34 g/dL (32.3-35.6); MEAN CORPUSCULAR VOLUME 83.1 fL (75.5-95.3); MONOCYTES # (AUTO) 0.5 K/uL (2.0-10.0); MONOCYTES % (AUTO) 6.8 % (0.0-11.0); NEUTROPHILS # (AUTO) 5.1 K/uL (1.8-8.9); NEUTROPHILS % (AUTO) 76.1 % (38.5-71.5); PLATELET COUNT (AUTO) 163 K/uL (179-408); RED BLOOD CELL COUNT(AUTO) 3.36 MIL/uL (3.63-4.92); WHITE BLOOD COUNT (AUTO) 6.7 K/uL (3.8-11.8)
[2018-02-22 07:11] LABS: ALANINE AMINOTRANSFERASE 12 U/L (14-59); ALKALINE PHOSPHATASE 55 U/L (50-136); ASPARTATE AMINOTRANSFERASE 13 U/L (15-37); BILIRUBIN,TOTAL 0.3 mg/dL (0.2-1.0); CHLORIDE 93 mmol/L (98-107); CREATININE 1.7 mg/dL (0.6-1.3); GLUCOSE 254 mg/dL (74-106); MAGNESIUM 1.9 mg/dL (1.8-2.4); PHOSPHOROUS 2.6 mg/dL (2.5-4.9); TOTAL PROTEIN, SERUM 6.7 g/dL (6.4-8.2); UREA NITROGEN, BLOOD 16 mg/dL (7-18)
[2018-02-22 07:43] LABS: CARBON DIOXIDE 40 mmol/L (21-32); POTASSIUM 2.6 mmol/L (3.5-5.1)
[2018-02-22] MEDS: POTASSIUM CHLORIDE 50 ML IV SCH ×8 (09:08→18:08)
[2018-02-22 11:17] VITALS: BP 115/77
[2018-02-22 15:06] VITALS: BP 138/56
--- NOTE | 2018-02-22 19:30 | NUR ---
rounds made patient in bed awake ,speaks farsi but able to understand little Arabic answer yes or no . no s/s of pain . ivf infusing via the left upper arm midline .
[2018-02-22 20:00] VITALS: BP 145/51
--- NOTE | 2018-02-22 20:30 | NUR ---
patient tolerated po medication took with water and had peaches ,assisted and hob up aspiration precaution observed .
[2018-02-22] MEDS: METOPROLOL TARTRATE 25 MG TABLET PO SCH (20:57)
[2018-02-22] MEDS ORDERED: ATORVASTATIN 40 MG TABLET PO SCH (21:00)
--- NOTE | 2018-02-22 21:45 | NUR ---
patient had a small bm ,after care done changed soiled linens ,applied z guard to rectal and sacral area , perineal care and f/c care done . turned and reposition patient , right groin hemodialysis catheter intact with dry and clean dressing .
[2018-02-23] VITALS: BP 149/52
[2018-02-23 04:00] VITALS: BP 144/46
--- NOTE | 2018-02-23 04:36 | NUR ---
SLEEPING IN BED NO RESPIRATORY DISTRESS NOTED.F/C TO BSD PATENT . NO S/S/ OF PAIN.CONTINUE O MONITOR LEVELS OF SAFETY AND COMFORT .
[2018-02-23] MEDS: PANTOPRAZOLE SODIUM 40 MG TABLET.DR PO SCH ×2 (06:07→16:46)
[2018-02-23 07:07] LABS: ALANINE AMINOTRANSFERASE 9 U/L (14-59); ALKALINE PHOSPHATASE 54 U/L (50-136); ASPARTATE AMINOTRANSFERASE 14 U/L (15-37); BILIRUBIN,TOTAL 0.4 mg/dL (0.2-1.0); CARBON DIOXIDE 34 mmol/L (21-32); CHLORIDE 97 mmol/L (98-107); CREATININE 1.3 mg/dL (0.6-1.3); GLUCOSE 262 mg/dL (74-106); MAGNESIUM 1.4 mg/dL (1.8-2.4); PHOSPHOROUS 2.9 mg/dL (2.5-4.9); POTASSIUM 3.2 mmol/L (3.5-5.1); TOTAL PROTEIN, SERUM 6.6 g/dL (6.4-8.2); UREA NITROGEN, BLOOD 12 mg/dL (7-18)
[2018-02-23 07:19] LABS: BASOPHILS % (AUTO) 0.3 % (0.0-2.0); EOSINOPHILS # (AUTO) 0.3 K/uL (0.0-0.7); EOSINOPHILS % (AUTO) 4.4 % (0.0-7.0); HEMATOCRIT 26.7 % (31.2-41.9); LYMPHOCYTES # (AUTO) 1.1 K/uL (20.0-40.0); LYMPHOCYTES % (AUTO) 17.8 % (20.5-51.5); MEAN CORPUSCULAR HEMOGLOBIN 27.9 uug (24.7-32.8); MEAN CORPUSCULAR HGB CONC 34 g/dL (32.3-35.6); MEAN CORPUSCULAR VOLUME 82.7 fL (75.5-95.3); MONOCYTES # (AUTO) 0.4 K/uL (2.0-10.0); MONOCYTES % (AUTO) 6.6 % (0.0-11.0); NEUTROPHILS # (AUTO) 4.3 K/uL (1.8-8.9); NEUTROPHILS % (AUTO) 70.9 % (38.5-71.5); PLATELET COUNT (AUTO) 195 K/uL (179-408); RED BLOOD CELL COUNT(AUTO) 3.23 MIL/uL (3.63-4.92); WHITE BLOOD COUNT (AUTO) 6.1 K/uL (3.8-11.8)
[2018-02-23 07:40] VITALS: BP 143/46
--- NOTE | 2018-02-23 08:00 | NUR ---
AWAKE ALERT AND APPROPRIATE FAMILY AT BEDSIDE UPDATED WITH PATIENT STATUS AND DC PLAN DISCUSSED/INITIATED BY MANAGER DEVELOPMENT. SR ON MONITOR
[2018-02-23] MEDS: METOPROLOL TARTRATE 25 MG TABLET PO SCH ×2 (08:22→16:46)
[2018-02-23] MEDS: MAGNESIUM SULFATE/D5W 100 ML IV SCH ×3 (09:38→10:56)
--- NOTE | 2018-02-23 11:00 | NUR ---
SEEN BY PHYSICAL THERAPIST SEE NOTES. SEEN ALSO BY DR GARNER AND DHARMESH WITH DISCHARGE ORDERS
[2018-02-23 11:06] VITALS: BP 178/52
[2018-02-23] MEDS: POTASSIUM CHLORIDE 50 ML IV SCH ×3 (11:56→13:47)
[2018-02-23] MEDS: SODIUM BICARBONATE 8.4% 150 MEQ in IV D5W 1000ML 1,000 ML IV PRN (13:49)
--- NOTE | 2018-02-23 14:06 | NUR ---
SEEN BY DR MOSES SAID OK TO GO HOME BUT FOLLOW-UP WITH PCP. RX GIVEN FOR PATIENT
[2018-02-23] MEDS: CLONIDINE HCL 0.1 MG TABLET PO PRN (14:54)
--- NOTE | 2018-02-23 15:05 | NUR ---
DR GARNER NOTIFIED REGARDING PERMACATH SAID OK TO BE REMOVED BY HEMODIALYSIS NURSE
[2018-02-23 15:16] VITALS: BP 155/57
--- NOTE | 2018-02-23 15:22 | NUR ---
PERMACATH REMOVED BY DIALYSIS NURSE PRESSURE DRESSING APPLIED. CLOSELY MONITORED FOR BLEEDING
[2018-02-23 16:46] VITALS: BP 148/76
--- NOTE | 2018-02-23 17:16 | NUR ---
DISCHARGED HOME STABLE ACCOMPANIED BY DAUGHTER AND WITH MEDICATION AND MD FOR FOLLOW UP INSTRUCTION
== END 2018-02-23 17:15 | disposition home health service (06) | DRG 422 ==
LOC: ER 23:31 → TELE-TD 02-19 03:21 → UNDOADMIN 02-19 03:21 → TELE 02-23 08:54
PROVIDERS: ADMIT Internal Medicine; ATTEND Nurse Practitioner Acute Care
PROC: 05HY33Z Insertion of Infusion Device into Upper Vein, Percutaneous Approach (ICD-10-PCS; principal; 2018-02-19)
PROC: B54BZZA Ultrasonography of Right Lower Extremity Veins, Guidance (ICD-10-PCS; principal; 2018-02-19)
PROC: 5A1D70Z Performance of Urinary Filtration, Intermittent, Less than 6 Hours Per Day (ICD-10-PCS; principal; 2018-02-19)
PROC: 0D9670Z Drainage of Stomach with Drainage Device, Via Natural or Artificial Opening (ICD-10-PCS; principal; 2018-02-19)
PROC: 06HM33Z Insertion of Infusion Device into Right Femoral Vein, Percutaneous Approach (ICD-10-PCS; principal; 2018-02-19)
DX: E87.2 Acidosis (principal); E86.0 Dehydration; N17.0 Acute kidney failure with tubular necrosis; I21.A1 Myocardial infarction type 2; K29.71 Gastritis, unspecified, with bleeding; E11.65 Type 2 diabetes mellitus with hyperglycemia; D62 Acute posthemorrhagic anemia; I31.3 Pericardial effusion (noninflammatory); T38.3X5A Adverse effect of insulin and oral hypoglycemic [antidiabetic] drugs, initial encounter; Y92.019 Unspecified place in single-family (private) house as the place of occurrence of the external cause; E87.1 Hypo-osmolality and hyponatremia; K22.8 Other specified diseases of esophagus; K21.0 Gastro-esophageal reflux disease with esophagitis; E87.5 Hyperkalemia; R18.8 Other ascites; I49.5 Sick sinus syndrome; E78.5 Hyperlipidemia, unspecified; K44.9 Diaphragmatic hernia without obstruction or gangrene; Z79.84 Long term (current) use of oral hypoglycemic drugs; Z95.0 Presence of cardiac pacemaker; R11.2 Nausea with vomiting, unspecified; F32.9 Major depressive disorder, single episode, unspecified; M19.90 Unspecified osteoarthritis, unspecified site; Z79.899 Other long term (current) drug therapy; I11.9 Hypertensive heart disease without heart failure; G89.29 Other chronic pain
CPT/HCPCS: 36415; 36600; 70030-TC; 71045; 74018; 83605; 83690; 83735; 84100; 85025; 85730; 87040; 90937; 93005; 93307; 97110; 97112; 97116; 97530; A4217; A4663; C1751; C9113; G0378; J2270; J2405; J2543; J3475; J3480; J3490; J3535; J7030; J7050; J7070

== ENCOUNTER 2018-04-24 10:32 | Emergency (ER) | payer MEDICARE, OTHER ==
[~2018-04-24] VITALS: Ht 149.9 cm; Wt 55.8 kg
--- NOTE | 2018-04-24 10:43 | NUR ---
pt. placed on monitor.
--- NOTE | 2018-04-24 10:45 | NUR ---
at bedside to examine pt.
[2018-04-24 11:10] LABS: BASOPHILS % (AUTO) 0.8 % (0.0-2.0); EOSINOPHILS # (AUTO) 0.1 K/uL (0.0-0.7); EOSINOPHILS % (AUTO) 2.3 % (0.0-7.0); HEMATOCRIT 27.1 % (31.2-41.9); HEMOGLOBIN 8.9 g/dL (10.9-14.3); LYMPHOCYTES # (AUTO) 1.5 K/uL (20.0-40.0); LYMPHOCYTES % (AUTO) 28.7 % (20.5-51.5); MEAN CORPUSCULAR HEMOGLOBIN 27.8 uug (24.7-32.8); MEAN CORPUSCULAR HGB CONC 33 g/dL (32.3-35.6); MEAN CORPUSCULAR VOLUME 84.4 fL (75.5-95.3); MONOCYTES # (AUTO) 0.5 K/uL (2.0-10.0); MONOCYTES % (AUTO) 8.9 % (0.0-11.0); NEUTROPHILS # (AUTO) 3.2 K/uL (1.8-8.9); NEUTROPHILS % (AUTO) 59.3 % (38.5-71.5); PLATELET COUNT (AUTO) 225 K/uL (179-408); WHITE BLOOD COUNT (AUTO) 5.3 K/uL (3.8-11.8)
[2018-04-24 11:20] LABS: CARBON DIOXIDE 25 mmol/L (21-32); CHLORIDE 104 mmol/L (98-107); GLUCOSE 100 mg/dL (74-106); POTASSIUM 4.2 mmol/L (3.5-5.1); UREA NITROGEN, BLOOD 13 mg/dL (7-18)
[2018-04-24 11:33] LABS: ALANINE AMINOTRANSFERASE 22 U/L (14-59); ALKALINE PHOSPHATASE 70 U/L (50-136); ASPARTATE AMINOTRANSFERASE 16 U/L (15-37); BILIRUBIN,DIRECT 0.1 mg/dL (0.0-0.2); BILIRUBIN,TOTAL 0.2 mg/dL (0.2-1.0); TOTAL PROTEIN, SERUM 6.8 g/dL (6.4-8.2)
--- NOTE | 2018-04-24 11:42 | NUR ---
Dr. Centeno at bedside to discuss care plan with pt. and daughter.
--- NOTE | 2018-04-24 11:48 | NUR ---
CALLED AND LEFT A MESSAGE.
[2018-04-24] MEDS ORDERED: FUROSEMIDE 20 MG TABLET PO ONE (12:00)
[2018-04-24] MEDS ORDERED: FUROSEMIDE 20 MG TABLET ONE (12:11)
[2018-04-24 12:12] VITALS: BP 150/74
--- NOTE | 2018-04-24 12:17 | NUR ---
Dcd instructions and prescription given to pt. and her daughter by Marylou verma. pt. left room ambulatory, AAOX4. vitals stable HR 60, 150/74, 100% room air. RR18.
--- NOTE | 2018-04-24 12:33 | NUR ---
pt. left unit ambulatory with help of a walker accompanied by daughter
== END 2018-04-24 12:34 | disposition home or self-care (01) ==
LOC: ER 10:32
DX: I11.0 Hypertensive heart disease with heart failure (principal); I50.9 Heart failure, unspecified; D64.9 Anemia, unspecified; E11.9 Type 2 diabetes mellitus without complications; E78.5 Hyperlipidemia, unspecified; K21.9 Gastro-esophageal reflux disease without esophagitis; Z95.0 Presence of cardiac pacemaker; Z79.899 Other long term (current) drug therapy
CPT/HCPCS: 36415; 70030-TC; 71045; 85025; 85730; 93005; A4663

== ENCOUNTER 2019-01-25 16:03 | Emergency (ER) | payer MEDICARE, OTHER ==
[~2019-01-25] VITALS: Ht 152.4 cm; Wt 52.6 kg
[~2019-01-25 16:03] MED LIST changes: +CYAN-51 PO; -CYAN10009 PO; +OMEP40CA13 PO; -OMEP40CA37 PO
--- NOTE | 2019-01-25 16:30 | NUR ---
PT IS A/OX4, BIB DAUGHTER, C/O COUGHING AND VOMITING X 2 WEEKS. PER DAUGHTER'S REPORT, PT HAS BEEN PROGRESSIVELY COUGHING MORE FREQUENTLY W/ SUBSEQUENT VOMITING. VSS. NAD AT THIS TIME, NO COUGHING NOTED AT THIS TIME. RESPIRATIONS EVEN AND UNLABORED. PT DENIES C/P, SOB, DIZZINESS, HEADACHE.
--- NOTE | 2019-01-25 16:40 | NUR ---
DISHA MONTERO AT BEDSIDE FOR MSE.
[2019-01-25 17:47] LABS: BASOPHILS % (AUTO) 0.2 % (0.0-2.0); HEMATOCRIT 32.5 % (31.2-41.9); HEMOGLOBIN 10.8 g/dL (10.9-14.3); LYMPHOCYTES # (AUTO) 1.3 K/uL (20.0-40.0); LYMPHOCYTES % (AUTO) 12.1 % (20.5-51.5); MEAN CORPUSCULAR HEMOGLOBIN 29.2 uug (24.7-32.8); MEAN CORPUSCULAR HGB CONC 33 g/dL (32.3-35.6); MEAN CORPUSCULAR VOLUME 87.5 fL (75.5-95.3); MONOCYTES # (AUTO) 0.4 K/uL (2.0-10.0); MONOCYTES % (AUTO) 3.9 % (0.0-11.0); NEUTROPHILS # (AUTO) 9.3 K/uL (1.8-8.9); NEUTROPHILS % (AUTO) 83.8 % (38.5-71.5); PLATELET COUNT (AUTO) 258 K/uL (179-408); RED BLOOD CELL COUNT(AUTO) 3.71 MIL/uL (3.63-4.92); WHITE BLOOD COUNT (AUTO) 11.1 K/uL (3.8-11.8)
[2019-01-25 17:54] LABS: CREATININE 0.8 mg/dL (0.6-1.3); POTASSIUM 4.2 mmol/L (3.5-5.1)
[2019-01-25 18:00] LABS: BILIRUBIN,DIRECT 0.1 mg/dL (0.0-0.2); BILIRUBIN,TOTAL 0.2 mg/dL (0.2-1.0); TOTAL PROTEIN, SERUM 7.2 g/dL (6.4-8.2)
[2019-01-25 18:13] VITALS: BP 152/66
--- NOTE | 2019-01-25 18:13 | NUR ---
Patient discharged to home in stable conditon. Written and verbal after care instructions given. Patient verbalizes understanding of instructions. ALL BELONGINGS W/ PT. PT SELF-ABMULATED W/O DIFFICULTY USING WALKER.
== END 2019-01-25 18:14 | disposition home or self-care (01) ==
LOC: ER 16:05
DX: J20.9 Acute bronchitis, unspecified (principal); R11.10 Vomiting, unspecified; E78.5 Hyperlipidemia, unspecified; I10 Essential (primary) hypertension; K21.9 Gastro-esophageal reflux disease without esophagitis; E11.9 Type 2 diabetes mellitus without complications; Z95.0 Presence of cardiac pacemaker; Z79.899 Other long term (current) drug therapy
CPT/HCPCS: 36415; 70030-TC; 71045; 85025; 85730; 93005; A4663